=== PATIENT | female | born 2000 | race Hispanic/Latino ===

== ENCOUNTER 2020-04-12 23:03 | Inpatient (IN) | payer BC ==
[~2020-04-12] VITALS: Ht 154.9 cm; Wt 72.1 kg
[2020-04-13] MEDS ORDERED: ONDANSETRON 4MG INJ ONE (00:02)
[2020-04-13] MEDS ORDERED: PROCHLORPERAZINE 10MG/2ML INJ ONE (00:03)
[2020-04-13 00:10] LABS: APPEARANCE,URINE Clear (CLEAR); BILIRUBIN,URINE Negative (NEGATIVE); COLOR,URINE Yellow (YELLOW); GLUCOSE, URINE (UA) 250 mg/dL (NEGATIVE); KETONES,URINE Trace mg/dL (NEGATIVE); LEUKOCYTE ESTERASE ,URINE Negative (NEGATIVE); NITRATE,URINE Negative (NEGATIVE); OCCULT BLOOD,URINE Negative (NEGATIVE); PH,URINE 5.5 (5.0-8.0); PROTEIN,URINE Trace mg/dL (NEGATIVE); UROBILINOGEN,URINE 0.2 mg/dL (0.2-1.0)
[2020-04-13 00:22] LABS: BACTERIA,URINE None Seen /HPF (None Seen); MUCUS,URINE Rare LPF (None Seen); RBC,URINE None Seen /HPF (0-1); SQUAMOUS EPITHELIAL CELL,UR Few /HPF (0-2); WBC,URINE None Seen /HPF (0-1); YEAST,URINE BUDDING None Seen /HPF (None Seen)
[2020-04-13 00:23] LABS: HCG,QUAL RESULT NEGATIVE (NEGATIVE)
[2020-04-13] MEDS ORDERED: KETOROLAC 30MG VIAL (30MG/ML) ONE (00:26)
[2020-04-13] MEDS ORDERED: LORAZEPAM 2 MG/ML 1 ML VIAL ONE (00:26)
[2020-04-13] MEDS ORDERED: MORPHINE 4 MG SYG ONE (00:46)
[2020-04-13 00:47] LABS: AMPHET/METH SCREEN,URINE NEGATIVE (NEGATIVE); BARBITURATE SCREEN, URINE NEGATIVE (NEGATIVE); BENZODIAZEPINES SCREEN,URINE NEGATIVE (NEGATIVE); CANNABINOID SCREEN,URINE NEGATIVE (NEGATIVE); COCAINE SCREEN,URINE NEGATIVE (NEGATIVE); OPIATE SCREEN,URINE NEGATIVE (NEGATIVE); PHENCYCLIDINE SCREEN,URINE NEGATIVE (NEGATIVE)
[2020-04-13] MEDS ORDERED: LACTATED RINGERS 1000ML 1,000 ML IV SCH ×2 (05:00→05:30)
[2020-04-13] MEDS ORDERED: MEPERIDINE-PF 50 MG/ML SYG IM PRN ×2 (05:00→05:30)
[2020-04-13] MEDS ORDERED: PROMETHAZINE HCL 25 MG/ML 1ML AMPULE IM PRN ×2 (05:00→05:30)
[2020-04-13 05:44] VITALS: BP 112/63
[2020-04-13 07:20] VITALS: BP 131/73
[2020-04-13] MEDS ORDERED: ASCO500T20 PO (10:06)
[2020-04-13] MEDS ORDERED: MAGN200T4 PO (10:06)
[2020-04-13] MEDS ORDERED: CHOL500050 PO (10:06)
[2020-04-13 12:02] VITALS: BP 108/63
[2020-04-13] MEDS ORDERED: IBUPROFEN 800 MG TAB PO SCH (13:30)
[2020-04-21 17:09] LABS: CHLAMYDIA DNA N.A.AMPLIFY Negative (Negative)
== END 2020-04-13 13:40 | disposition home or self-care (01) | DRG 761 ==
LOC: EDH 23:03 → EDHIP 04-13 03:15 → WSH 04-13 04:39
PROVIDERS: ADMIT Obstetrics & Gynecology; ATTEND Obstetrics & Gynecology
DX: N83.292 Other ovarian cyst, left side (principal)
CPT/HCPCS: 36415; 74176; 76856; 80053; 80305; 81001; 81025; 85025; 87486; 87797; G0378; J0780; J1885; J2060; J2270; J2405

== ENCOUNTER 2022-07-06 10:39 | Emergency (ER) | payer BC ==
[~2022-07-06] VITALS: Ht 154.9 cm; Wt 71.7 kg
[~2022-07-06 10:39] MED LIST: ASCO500T20 PO; CHOL500050 PO; MAGN200T4 PO
[2022-07-06] MEDS ORDERED: POLY17PO4 PO (12:31)
[2022-07-06 13:11] VITALS: BP 124/82
== END 2022-07-06 13:12 | disposition home or self-care (01) ==
LOC: EDH 10:39
DX: K62.89 Other specified diseases of anus and rectum (principal)
CPT/HCPCS: 74018; 81025